=== PATIENT | male | born 1950 | race African-American/Black ===

== ENCOUNTER 2016-12-22 21:08 | Emergency (ER) | payer MEDICARE, MEDICAID ==
[2016-12-22 21:16] VITALS: BP 153/71
--- NOTE | 2016-12-22 22:20 | ER Document Report ---
ED General - General Chief Complaint: Low Blood Sugar Stated Complaint: BLOOD SUGAR PROBLEM Time Seen by Provider: 12/22/16 21:33 Notes: Patient is a 66-year-old male with history of borderline diabetes, currently taking metformin who presents with concerns of episode of hypoglycemia at home. Patient states his glucometer was reading into the low 20s at home but he did not have any symptoms. However states due to this reading he did come to the emergency department for assessment. He has not taken any insulin or oral hypoglycemics. He has not seen his [facility] doctor regarding today's concerns. He denies any additional symptoms. TRAVEL OUTSIDE OF THE [place] IN LAST 30 DAYS: No - Related Data Allergies/Adverse Reactions: cephalexin monohydrate [From [employer]] Allergy (Verified 12/22/16 21:13) Sulfa (Sulfonamide Antibiotics) Allergy (Verified 12/22/16 21:13) Past Medical History - General Information source: Patient - Social History Smoking Status: Never Smoker Frequency of alcohol use: None Drug Abuse: None Lives with: Spouse/Significant other Family History: Reviewed & Not Pertinent Patient has suicidal ideation: No Patient has homicidal ideation: No - Past Medical History Cardiac Medical History: Reports: Hx Coronary Artery Disease - STENT X1, Hx Hypercholesterolemia, Hx Hypertension Pulmonary Medical History: Denies: Hx Asthma, Hx Bronchitis, Hx COPD, Hx Pneumonia Neurological Medical History: Denies: Hx Cerebrovascular Accident, Hx Seizures Endocrine Medical History: Reports: Hx Diabetes Mellitus Type 1, Hx Diabetes Mellitus Type 2 Renal/ Medical History: Denies: Hx Peritoneal Dialysis Musculoskeltal Medical History: Reports Hx Arthritis Traumatic Medical History: Reports: Hx Fractures - 9-2-13 Left ulna fx Past Surgical History: Reports: Hx Cardiac Catheterization, Hx Cardiac Surgery - stent, Hx Coronary Stent - Immunizations Hx Diphtheria, Pertussis, Tetanus Vaccination: Yes Hx Pneumococcal Vaccination: 02/27/15 Review of Systems - Review of Systems Notes: Constitutional: Negative for fever. HENT: Negative for sore throat. Eyes: Negative for visual changes. Cardiovascular: Negative for chest pain. Respiratory: Negative for shortness of breath. Gastrointestinal: Negative for abdominal pain, vomiting or diarrhea. Genitourinary: Negative for dysuria. Musculoskeletal: Negative for back pain. Skin: Negative for rash. Neurological: Negative for headaches, weakness or numbness. 10 point ROS negative except as marked above and in HPI. Physical Exam - Vital signs Vitals: Temp Pulse Resp BP Pulse Ox 98.3 F 59 L 18 153/71 H 98 12/22/16 21:14 12/22/16 21:14 12/22/16 21:14 12/22/16 21:14 12/22/16 21:14 Interpretation: Bradycardic Notes: PHYSICAL EXAMINATION: GENERAL: Well-appearing, well-nourished and in no acute distress. HEAD: Atraumatic, normocephalic. EYES: sclera anicteric, conjunctiva are normal. ENT: Moist mucous membranes. NECK: Normal range of motion LUNGS: Normal work of breathing HEART: 2+ radial pulses bilaterally EXTREMITIES: no pitting or edema. No cyanosis. NEUROLOGICAL: No focal neurological deficits. Moves all extremities spontaneously and on command. PSYCH: Normal mood, normal affect. SKIN: Warm, Dry, normal turgor, no rashes or lesions noted. Course - Re-evaluation Re-evalutation: 12/22/16 22:19 Patient presents with concerns of a possible hypoglycemia although I suspect this is a spurious result as he does not take any oral hypoglycemic or insulin and denies any symptoms when he is getting readings of blood sugars in the 30s. This does not clinically make any sense and his blood sugar is normal here. He is otherwise asymptomatic. Screening exam unremarkable. Vitals within normal limits. Will discharge with follow-up recommendations and return precautions. He is in agreement with this plan. - Vital Signs Vital signs: Temp Pulse Resp BP Pulse Ox 98.3 F 59 L 18 153/71 H 98 12/22/16 21:14 12/22/16 21:14 12/22/16 21:14 12/22/16 21:14 12/22/16 21:14 - Laboratory Laboratory results interpreted by me: 12/22/16 21:42 POC Glucose 229 H Discharge - Discharge Clinical Impression: Diabetes mellitus type 2, controlled, without complications Qualifiers: Diabetes mellitus fci insulin use: without terminal computer operator use Qualified Code(s ): E11.9 - Type 2 diabetes mellitus without complications Condition: Good Disposition: HOME, SELF-CARE Additional Instructions: Please return to the emergency room immediately if you experience any concerning symptoms including high fevers, severe headache, chest pain, difficulty breathing, abdominal pain, slurred speech, numbness or weakness in your arms or legs, or any other symptom that concerns you. Referrals: ДМИТРИЙ ROJAS, DO [Primary Care Provider] - Follow up as needed
== END 2016-12-22 22:26 | disposition home or self-care (01) ==
LOC: ER 21:08
DX: E11.649 Type 2 diabetes mellitus with hypoglycemia without coma (principal)
CPT/HCPCS: 82962; 99283

== ENCOUNTER 2017-09-16 07:39 | Emergency (ER) | payer MEDICARE, MEDICAID ==
[2017-09-16] MEDS ORDERED: IPRATROPIUM/ALBUTEROL 0.5-2.5 MG/3 ML AMPUL NEB ONE (08:03)
--- NOTE | 2017-09-16 08:53 | ER Document Report ---
HPI - HPI Patient complains to provider of: Cough, congestion Onset: Other - 4 days Onset/Duration: Persistent Quality of pain: No pain Pain Level: Denies Context: Patient presents complaining of cough with congestion for the past 4 days. Patient reports being around a family member who has been sick with upper respiratory symptoms recently. Patient without any fevers. Associated Symptoms: Nonproductive cough, Rhinnorhea. denies: Chest pain, Fever , Nausea, Shortness of breath Exacerbated by: Denies Relieved by: Denies Similar symptoms previously: No Recently seen / treated by doctor: No - ROS ROS below otherwise negative: Yes Systems Reviewed and Negative: Yes All other systems reviewed and negative - CONSTITUTIONAL Constitutional: DENIES: Fever - EENT EENT: REPORTS: Nasal Drainage-Clear, Congestion - NEURO Neurology: DENIES: Headache - RESPIRATORY Respiratory: REPORTS: Coughing - GASTROINTESTINAL Gastrointestinal: DENIES: Abdominal Pain, Nausea, Patient vomiting - REPRODUCTIVE Reproductive: DENIES: : - MUSCULOSKELETAL Musculoskeletal: DENIES: Back Pain - DERM Skin Color: Normal Skin Problems: None Past Medical History - General Information source: Patient - Social History Smoking Status: Never Smoker Frequency of alcohol use: None Drug Abuse: None Occupation: None Lives with: Family Family History: Reviewed & Not Pertinent - Past Medical History Cardiac Medical History: Reports: Hx Coronary Artery Disease - STENT X1, Hx Hypercholesterolemia, Hx Hypertension Pulmonary Medical History: Denies: Hx Asthma, Hx Bronchitis, Hx COPD, Hx Pneumonia Neurological Medical History: Denies: Hx Cerebrovascular Accident, Hx Seizures Endocrine Medical History: Reports: Hx Diabetes Mellitus Type 1, Hx Diabetes Mellitus Type 2 Renal/ Medical History: Denies: Hx Peritoneal Dialysis Musculoskeltal Medical History: Reports Hx Arthritis Traumatic Medical History: Reports: Hx Fractures - 9-2-13 Left ulna fx Past Surgical History: Reports: Hx Cardiac Catheterization, Hx Cardiac Surgery - stent, Hx Coronary Stent - Immunizations Hx Diphtheria, Pertussis, Tetanus Vaccination: Yes Hx Pneumococcal Vaccination: 02/27/15 Vertical Provider Document - CONSTITUTIONAL Agree With Documented VS: Yes Exam Limitations: No Limitations General Appearance: WD/WN, No Apparent Distress - INFECTION CONTROL TRAVEL OUTSIDE OF THE [place] IN LAST 30 DAYS: No - HEENT HEENT: Atraumatic, Normal ENT Exam, Normocephalic - NECK Neck: Normal Inspection, Supple. negative: Lymphadenopathy-Left, Lymphadenopathy-Right - RESPIRATORY Respiratory: No Respiratory Distress, Chest Non-Tender, Wheezing - CARDIOVASCULAR Cardiovascular: Regular Rate, Regular Rhythm, No Murmur - GI/ABDOMEN Gastrointestinal: Abdomen Soft, Abdomen Non-Tender - BACK Back: Normal Inspection. negative: CVA Tenderness-Right, CVA Tenderness-Left - MUSCULOSKELETAL/EXTREMETIES Musculoskeletal/Extremeties: CARMINA, FROM - NEURO Level of Consciousness: Awake, Alert, Appropriate Motor/Sensory: No Motor Deficit - DERM Integumentary: Warm, Dry, No Rash Course - Re-evaluation Re-evalutation: 09/16/17 09:34 Patient with good air movement bilaterally, faint wheezing scattered bilaterally. Respirations unlabored. Chest x-ray without any findings concerning for pneumonia. Patient given good return precautions. - Vital Signs Vital signs: Temp Pulse Resp BP Pulse Ox 97.6 F 67 16 137/78 H 100 09/16/17 07:43 09/16/17 07:43 09/16/17 07:43 09/16/17 07:43 09/16/17 07:43 - Diagnostic Test Radiology reviewed: Reports reviewed Discharge - Discharge Clinical Impression: Wheezing Upper respiratory infection Qualifiers: URI type: unspecified URI Qualified Code(s): J06.9 - Acute upper respiratory infection, unspecified Condition: Stable Disposition: HOME, SELF-CARE Additional Instructions: Return immediately for any new or worsening symptoms Followup with your primary care provider, call tomorrow to make a followup appointment UPPER RESPIRATORY ILLNESS: You have a viral infection of the respiratory passages -- a "cold." This common infection causes nasal congestion, drainage, and often sore throat and cough. It is highly contagious. The disease usually lasts about 10 to 14 days. There is no "cure" for the viral infection -- it must run its course. If there is a complication, such as bacterial infection in the nose, sinuses, middle ear, or bronchial tubes, antibiotics may be required. The antibiotics won't affect the virus. Drink plenty of fluids. A humidifier may help. An expectorant medication or decongestant may make you more comfortable. Use acetaminophen or ibuprofen for fever or aches. See the doctor if fever persists over two days, if there is any significant worsening of your symptoms, or if you simply fail to improve as expected. BRONCHOSPASM: You have tightness in the bronchial tubes, called bronchospasm. This often occurs with bronchial infections. Allergies, inhaled chemicals, and polluted or cold air can also provoke bronchospasm. It's more likely in patients with asthma in the family. Emergency treatment of bronchospasm may include adrenaline shots or bronchodilator aerosol. You may feel lightheaded and have a rapid pulse for an hour or two. Rest and get plenty of fluids. At home, we'll treat you with a bronchodilator inhaler. Antibiotics and corticosteroids may be required for some patients. Until you recover, avoid chemical fumes, dusts, pollens, and exercising in very cold or dry air. If you smoke, stop now!! If you develop a fever, increased wheezing, chest pain, or severe shortness of breath, you should contact the doctor immediately. INHALED BRONCHODILATORS: You have received a treatment of and/or prescription for an inhaled bronchodilator -- a medication which stimulates the airways in the lung to dilate. This improves the flow of air in asthma, bronchitis, and emphysema. These medicines have some similarity to adrenaline, and can cause similar side effects: shakiness, racing heart, and a sense of nervousness. These side effects decrease with time. Contact your doctor if these side effects are severe. Do not over-use the medicine. Too-frequent use of the inhaler may make it ineffective. Call your doctor if the inhaler is not controlling your symptoms at the prescribed doses. STEROID MEDICATION: You have been given an injection of or oral medicine of the cortisone/ steroid class. This medication is used to control inflammation or allergy. Rey t is usually only given for a short period of time, until the acute process subsides. There are usually no side effects from short-term use of cortisone-like medications. Some persons feel an increased sense of well-being and are not sleepy at bedtime. Long-term use of cortisone medications is best avoided, unless required for a severe condition. If your condition does not remit, or relapses after the course of corticosteroid medication, you should consult your physician. USE OF ACETAMINOPHEN (Tylenol): Acetaminophen may be taken for pain relief or fever control. It's much safer than aspirin, offering a wider range of "safe" dosages. It is safe during . Some brand names are Tylenol, Panadol, Datril, Anacin 3, Tempra, and Liquiprin. Acetaminophen can be repeated every four hours. The following are maximum recommended dosages: >89 pounds or adults 650 mg to 900 mg Acetaminophen can be repeated every four hours. Maximum dose not to exceed 4000 mg a day. FOLLOW-UP CARE: If you have been referred to a physician for follow-up care, call the physician s office for an appointment as you were instructed or within the next two days. If you experience worsening or a significant change in your symptoms, notify the physician immediately or return to the Emergency Department at any time for re-evaluation. Prescriptions: Albuterol Sulfate [Ventolin Hfa] 2 puff IH Q4HP PRN #17 gm PRN Reason: Benzonatate [Tessalon Perle 100 mg Capsule] 100 mg PO Q8HP PRN #20 cap PRN Reason: Prednisone [Deltasone 20 mg Tablet] 2 tab PO DAILY 4 Days tablet Referrals: ДМИТРИЙ ROJAS DO [Primary Care Provider] - Follow up tomorrow
--- NOTE | 2017-09-16 08:56 | RADIOLOGY REPORT (SQ) ---
EXAM DESCRIPTION: CHEST 2 VIEWS COMPLETED DATE/TIME: 09/16/2017 8:25 am REASON FOR STUDY: cough COMPARISON: Chest films 04/26/2016, 01/25/2014 EXAM PARAMETERS: NUMBER OF VIEWS: two views TECHNIQUE: Digital Frontal and Lateral radiographic views of the chest acquired. RADIATION DOSE: NA LIMITATIONS: none FINDINGS: LUNGS AND PLEURA: No opacities, masses or pneumothorax. No pleural effusion. MEDIASTINUM AND HILAR STRUCTURES: No masses or contour abnormalities. HEART AND VASCULAR STRUCTURES: Heart normal size. No evidence for failure. BONES: No acute findings. HARDWARE: None in the chest. OTHER: No other significant finding. IMPRESSION: NO ACUTE RADIOGRAPHIC FINDING IN THE CHEST. TECHNICAL DOCUMENTATION: JOB ID: [id number] [employer]- All Rights Reserved Reading location - IP/workstation name: [email or web address]
[2017-09-16] MEDS ORDERED: PREDNISONE 20 MG TABLET PO ONE (09:34)
[2017-09-16 10:15] VITALS: BP 147/77
== END 2017-09-16 10:07 | disposition home or self-care (01) ==
LOC: ER 07:39
DX: J06.9 Acute upper respiratory infection, unspecified (principal); R05 Cough; R06.2 Wheezing; J34.89 Other specified disorders of nose and nasal sinuses; I25.10 Atherosclerotic heart disease of native coronary artery without angina pectoris; I10 Essential (primary) hypertension; E11.9 Type 2 diabetes mellitus without complications; Z95.5 Presence of coronary angioplasty implant and graft
CPT/HCPCS: 94640; 99283; 71046; A9270 ×2; J7512; J7620

== ENCOUNTER 2018-04-29 08:38 | Emergency (ER) | payer MEDICARE, MEDICAID ==
--- NOTE | 2018-04-29 09:15 | ER Document Report ---
Addendum entered and electronically signed by DAVY GONZALEZ NP 04/29/18 09:58: Course - Re-evaluation Re-evalutation: 04/29/18 09:57 Chest x-ray was negative and discussed with patient. Patient was discharged home with instructions for Coricidin HB Flonase and soda solution gargles for his postnasal drip. After performing a Medical Screening Examination, I estimate there is LOW risk for ACUTE CORONARY SYNDROME, RESPIRATORY FAILURE, SEPSIS OR MENINGITIS, thus I consider the discharge disposition reasonable. I have reevaluated this patient multiple times and no significant life threatening changes are noted. The patient and I have discussed the diagnosis and risks, and we agree with discharging home with close follow-up. We also discussed returning to the Emergency Department immediately if new or worsening symptoms occur. We have discussed the symptoms which are most concerning (e.g., changing or worsening pain, trouble swallowing or breathing, neck stiffness, fever) that necessitate immediate return. - Vital Signs Vital signs: Temp Pulse Resp BP Pulse Ox 98.5 F 63 16 152/77 H 99 04/29/18 08:41 04/29/18 08:41 04/29/18 08:41 04/29/18 08:41 04/29/18 08:41 - Diagnostic Test Radiology reviewed: Image reviewed, Reports reviewed Original Note: ED Respiratory Problem - General Chief Complaint: Nasal Congestion Stated Complaint: COUGH, RUNNY NOSE Time Seen by Provider: 04/29/18 09:00 Mode of Arrival: Ambulatory Information source: Patient Notes: 68-year-old male presented to ED for cough cold congestion times 1/2 weeks. He states he has not had any fevers he has a had a productive cough with white sputum congestion postnasal drip and has been taken [id number] medications with no relief. He is alert oriented respirations regular and unlabored speaking in full sentences denies any chest pain. States he does have some body aches. He is able to walk with a even steady gait. He states he had 2 flu shots this year because he was told he had to because of his age. He states he had his pneumonia shot in 2014. TRAVEL OUTSIDE OF THE [place] IN LAST 30 DAYS: No - HPI Patient complains to provider of: Cough Onset: Other - 1-1/2 weeks Duration: Intermittent episodes Initiating Event: URI Quality of pain: Achy Severity: None Sputum amount: Small Sputum color: White Associated symptoms: Congestion, Cough, PND, Runny nose, Sinus pain/pressure Similar symptoms previously: Yes Recently seen / treated by doctor: No - Related Data Allergies/Adverse Reactions: cephalexin monohydrate [From Keflex] Allergy (Verified 12/22/16 21:13) Sulfa (Sulfonamide Antibiotics) Allergy (Verified 12/22/16 21:13) Past Medical History - General Information source: Patient - Social History Smoking Status: Never Smoker Drug Abuse: None Lives with: Alone Family History: Reviewed & Not Pertinent Patient has suicidal ideation: No Patient has homicidal ideation: No - Past Medical History Cardiac Medical History: Reports: Hx Coronary Artery Disease - STENT X1, Hx Hypercholesterolemia, Hx Hypertension Pulmonary Medical History: Reports: None EENT Medical History: Reports: None Neurological Medical History: Reports: None Endocrine Medical History: Reports: Hx Diabetes Mellitus Type 2 Renal/ Medical History: Reports: None Malignancy Medical History: Reports None GI Medical History: Reports: None Musculoskeletal Medical History: Reports Hx Arthritis Skin Medical History: Reports None Psychiatric Medical History: Reports: None Traumatic Medical History: Reports: Hx Fractures - 12-29-12 Left ulna fx Infectious Medical History: Reports: None Past Surgical History: Reports: Hx Cardiac Catheterization, Hx Cardiac Surgery, Hx Coronary Stent - Immunizations Immunizations up to date: Yes Hx Diphtheria, Pertussis, Tetanus Vaccination: Yes History of Influenza Vaccine for 01/2017 - 06/2017 Season: Yes Hx Pneumococcal Vaccination: 02/27/15 Review of Systems - Review of Systems Constitutional: Recent illness EENT: Nose congestion, Nose discharge, Sinus pressure, Sinus discharge Cardiovascular: No symptoms reported Respiratory: Sputum Gastrointestinal: No symptoms reported Genitourinary: No symptoms reported Male Genitourinary: No symptoms reported Musculoskeletal: No symptoms reported Skin: No symptoms reported Hematologic/Lymphatic: No symptoms reported Neurological/Psychological: No symptoms reported -: Yes All other systems reviewed and negative Physical Exam - Vital signs Vitals: Temp Pulse Resp BP Pulse Ox 98.5 F 63 16 152/77 H 99 04/29/18 08:41 04/29/18 08:41 04/29/18 08:41 04/29/18 08:41 04/29/18 08:41 Interpretation: Normal - General General appearance: Appears well, Alert - HEENT Head: Normocephalic, Atraumatic Eyes: Normal Pupils: PERRL Ears: Normal External canal: Normal Tympanic membrane: Normal Sinus: Normal Nasal: Swelling, Clear rhinorrhea Mouth/Lips: Normal Mucous membranes: Normal Pharynx: Post nasal drainage Neck: Normal - Respiratory Respiratory status: No respiratory distress Chest status: Nontender Breath sounds: Normal, Productive cough - white Chest palpation: Normal - Cardiovascular Rhythm: Regular Heart sounds: Normal auscultation Murmur: No - Abdominal Inspection: Normal Distension: No distension Bowel sounds: Normal Tenderness: Nontender Organomegaly: No organomegaly - Back Back: Normal, Nontender - Extremities General upper extremity: Normal inspection, Nontender, Normal color, Normal ROM, Normal temperature General lower extremity: Normal inspection, Nontender, Normal color, Normal ROM, Normal temperature, Normal weight bearing. No: Akash's sign - Neurological Neuro grossly intact: Yes Cognition: Normal Orientation: AAOx4 Roly Coma Scale Eye Opening: Spontaneous Roly Coma Scale Verbal: Oriented Roly Coma Scale Motor: Obeys Commands Roly Coma Scale Total: 15 Speech: Normal Motor strength normal: LUE, RUE, LLE, RLE Sensory: Normal - Psychological Associated symptoms: Normal affect, Normal mood - Skin Skin Temperature: Warm Skin Moisture: Dry Skin Color: Normal Course - Vital Signs Vital signs: Temp Pulse Resp BP Pulse Ox 98.5 F 63 16 152/77 H 99 04/29/18 08:41 04/29/18 08:41 04/29/18 08:41 04/29/18 08:41 04/29/18 08:41 Discharge - Discharge Clinical Impression: URI (upper respiratory infection) Qualifiers: URI type: unspecified URI Qualified Code(s): J06.9 - Acute upper respiratory infection, unspecified Condition: Stable Disposition: HOME, SELF-CARE Additional Instructions: UPPER RESPIRATORY ILLNESS: You have a viral infection of the respiratory passages -- a "cold." This common infection causes nasal congestion, drainage, and often sore throat and cough. It is highly contagious. The disease usually lasts about 10 to 14 days. There is no "cure" for the viral infection -- it must run its course. If there is a complication, such as bacterial infection in the nose, sinuses, middle ear, or bronchial tubes, antibiotics may be required. The antibiotics won't affect the virus. Drink plenty of fluids. A humidifier may help. An expectorant medication or decongestant may make you more comfortable. Use acetaminophen or ibuprofen for fever or aches. See the doctor if fever persists over two days, if there is any significant worsening of your symptoms, or if you simply fail to improve as expected. COUGH-SUPPRESSANT & EXPECTORANT MEDICATION: You are to use a cough medication as needed for relief of symptoms. This medicine is a combination of an expectorant (to make the mucous thinner and more easily "coughed up") and a cough suppressant (to reduce the frequency of coughing). The cough-suppressant medicine is related to narcotics. You may experience mild nausea and sleepiness. Some patients who are very sensitive to narcotics may have stomach pain from this medicine. Taking the medicine with food reduces these side effects. Do not drive or work with machinery until you know how this medicine affects you. The expectorant should have no side effects. Iodine-containing expectorants (such as organidin) should not be taken by persons with active thyroid disease unless approved by your doctor. Call the doctor if you develop shortness of breath, hives, rash, itching, lightheadedness, or severe nausea and vomiting. USE OF ACETAMINOPHEN (Tylenol): Acetaminophen may be taken for pain relief or fever control. It's much safer than aspirin, offering a wider range of "safe" dosages. It is safe during . Some brand names are Tylenol, Panadol, Datril, Anacin 3, Tempra, and Liquiprin. Acetaminophen can be repeated every four hours. The following are maximum recommended dosages: >89 pounds or adults 650 mg to 900 mg Acetaminophen can be repeated every four hours. Maximum dose not to exceed 4000 mg a day. SMOKING: If you smoke, you should stop smoking. The tar and chemicals in cigarette smoke are harmful. Smoking has been shown to cause: emphysema chronic bronchitis lung cancer mouth and throat cancer stomach and pancreas cancer premature aging defects In addition, smoking increases ear and lung infections in children of smokers. Please try Coricidin HB for your cough, congestions. You can also use Flonase nasal spray or nasal drainage, Chloraseptic spray for your throat and salt and soda solution gargles to remove the postnasal drip from the back your throat. Salt and soda solution 1 quart of water 1 tablespoon of salt 1 teaspoon of baking soda Mixed 3 ingredients together and boil for 1 minute Placed in a covered quart jar Use 1/2 ounce of cold solution to gargle 3 times a day If you have been referred to a physician for follow-up care, call the physicians office for an appointment as you were instructed or within the next two days. If you experience worsening or a significant change in your symptoms, notify the physician immediately or return to the Emergency Department at any time for re-evaluation. Forms: Elevated Blood Pressure, Smoking Cessation Education, Return to Work Referrals: ДМИТРИЙ ROJAS DO [Primary Care Provider] - Follow up in 3-5 days
--- NOTE | 2018-04-29 09:38 | RADIOLOGY REPORT (SQ) ---
EXAM DESCRIPTION: CHEST 2 VIEWS COMPLETED DATE/TIME: 04/29/2018 9:09 am REASON FOR STUDY: cough congestion COMPARISON: 09/16/2017 EXAM PARAMETERS: NUMBER OF VIEWS: two views TECHNIQUE: Digital Frontal and Lateral radiographic views of the chest acquired. RADIATION DOSE: NA LIMITATIONS: none FINDINGS: LUNGS AND PLEURA: No opacities, masses or pneumothorax. No pleural effusion. MEDIASTINUM AND HILAR STRUCTURES: No masses or contour abnormalities. HEART AND VASCULAR STRUCTURES: Heart normal size. No evidence for failure. BONES: Disc degenerative disease of the thoracic spine. HARDWARE: None in the chest. OTHER: No other significant finding. IMPRESSION: NO ACUTE RADIOGRAPHIC FINDING IN THE CHEST. TECHNICAL DOCUMENTATION: JOB ID: [id number] [employer]- All Rights Reserved Reading location - IP/workstation name: [email or web address]
[2018-04-29 10:08] VITALS: BP 132/74
== END 2018-04-29 09:59 | disposition home or self-care (01) ==
LOC: ER 08:38
DX: J06.9 Acute upper respiratory infection, unspecified (principal); R05 Cough; R09.82 Postnasal drip; R09.81 Nasal congestion; J34.89 Other specified disorders of nose and nasal sinuses; I10 Essential (primary) hypertension; I25.10 Atherosclerotic heart disease of native coronary artery without angina pectoris; E11.9 Type 2 diabetes mellitus without complications; Z88.1 Allergy status to other antibiotic agents; Z88.2 Allergy status to sulfonamides; Z95.5 Presence of coronary angioplasty implant and graft
CPT/HCPCS: 71046; 99283

== ENCOUNTER 2018-08-02 12:24 | Emergency (ER) | payer MEDICARE, MEDICAID ==
--- NOTE | 2018-08-02 13:56 | RADIOLOGY REPORT (SQ) ---
EXAM DESCRIPTION: CHEST 2 VIEWS COMPLETED DATE/TIME: 08/02/2018 1:43 pm REASON FOR STUDY: sob COMPARISON: 04/29/2018 and earlier EXAM PARAMETERS: NUMBER OF VIEWS: two views TECHNIQUE: Digital Frontal and Lateral radiographic views of the chest acquired. RADIATION DOSE: NA LIMITATIONS: none FINDINGS: LUNGS AND PLEURA: No opacities, masses or pneumothorax. No pleural effusion. MEDIASTINUM AND HILAR STRUCTURES: No masses or contour abnormalities. HEART AND VASCULAR STRUCTURES: Heart normal size. No evidence for failure. BONES: No acute findings. HARDWARE: None in the chest. OTHER: No other significant finding. IMPRESSION: NO ACUTE RADIOGRAPHIC FINDING IN THE CHEST. TECHNICAL DOCUMENTATION: JOB ID: [id number] [employer]- All Rights Reserved Reading location - IP/workstation name: [email or web address]
--- NOTE | 2018-08-02 14:13 | ER Document Report ---
HPI - HPI Patient complains to provider of: cough Time Seen by Provider: 08/02/18 13:15 Pain Level: 3 Context: Patient is a 68-year-old male presents to the emergency department for generalized cough and congestion for the last 4 days. Patient's denying any fever. States he is taking [id number] Coricidin HPV. States he tried to get into his primary care provider but was unable. Patient is denying any chest pain or shortness of breath. States he wants to make sure he does not have pneumonia. Past medical history: Diabetes, hypertension, hyperlipidemia Medications: Amlodipine, gabapentin, atenolol, losartan, metformin, simvastatin Allergies: Sulfa, Keflex - REPRODUCTIVE Reproductive: DENIES: : Past Medical History - General Information source: Patient - Social History Smoking Status: Unknown if Ever Smoked Family History: Reviewed & Not Pertinent - Past Medical History Cardiac Medical History: Reports: Hx Coronary Artery Disease - STENT X1, Hx Hypercholesterolemia, Hx Hypertension Endocrine Medical History: Reports: Hx Diabetes Mellitus Type 1, Hx Diabetes Mellitus Type 2 Renal/ Medical History: Denies: Hx Peritoneal Dialysis Musculoskeletal Medical History: Reports Hx Arthritis Traumatic Medical History: Reports: Hx Fractures - 9- Left ulna fx Past Surgical History: Reports: Hx Cardiac Catheterization, Hx Cardiac Surgery, Hx Coronary Stent - Immunizations Immunizations up to date: Yes Hx Diphtheria, Pertussis, Tetanus Vaccination: Yes Hx Pneumococcal Vaccination: 02/27/15 Vertical Provider Document - CONSTITUTIONAL Agree With Documented VS: Yes Notes: GENERAL: Alert, interacts well. No acute distress. HEAD: Normocephalic, atraumatic. No frontal or maxillary sinus tenderness noted EYES: Pupils equal, round, and reactive to light. Extraocular movements intact. ENT: Oral mucosa moist, tongue midline. Nares patent, swollen turbinates noted bilaterally, TM's intact, Nonerythematous, nonbulging bilaterally. Pharynx within normal limits no palatal petechiae noted NECK: Full range of motion. Supple. Trachea midline. No lymphadenopathy appreciated LUNGS: Clear to auscultation bilaterally, no wheezes, rales, or rhonchi. No respiratory distress. HEART: Regular rate and rhythm. No murmur ABDOMEN: Soft, non-tender. Non-distended. Bowel sounds present in all 4 quadrants. EXTREMITIES: Moves all 4 extremities spontaneously. No edema, normal radial and dorsalis pedis pulses bilaterally. No cyanosis. BACK: no cervical, thoracic, lumbar midline tenderness. No saddle anesthesia, normal distal neurovascular exam. NEUROLOGICAL: Alert and oriented x3. Normal speech. cranial nerves II through XII grossly intact. PSYCH: Normal affect, normal mood. SKIN: Warm, dry, normal turgor. No rashes or lesions noted. - INFECTION CONTROL TRAVEL OUTSIDE OF THE [place] IN LAST 30 DAYS: No Course - Re-evaluation Re-evalutation: 08/02/18 14:11 patient's chest x-ray shows no signs of pneumonia, pneumothorax, rib fracture. Due to patient's history of hypertension Coricidin HPB as well as the only medication safe and hypertension. Discussed Use of nasal sprays, staying well- hydrated and following up with primary care provider. Patient stable for discharge. - Vital Signs Vital signs: Temp Pulse Resp BP Pulse Ox 98.7 F 69 16 142/76 H 100 08/02/18 12:31 08/02/18 12:31 08/02/18 12:31 08/02/18 12:31 08/02/18 12:31 Discharge - Discharge Clinical Impression: Upper respiratory infection Qualifiers: URI type: unspecified viral URI Qualified Code(s): J06.9 - Acute upper respiratory infection, unspecified Condition: Stable Disposition: HOME, SELF-CARE Instructions: Viral Syndrome ([facility]), Upper Respiratory Illness ([facility]) Additional Instructions: As we discussed you have been seen and treated in the emergency department for an upper respiratory infection. Please make sure you take medications as prescribed. Please also make sure you continue with Coricidin HBP for continued care. Please make sure you stay well-hydrated and follow-up with your primary care provider in the next 24-48 hours. Return to the emergency room should you have any other concerning symptoms Prescriptions: Mometasone Furoate [Nasonex] 1 spray NS Q12 #1 spray.pump Referrals: ДМИТРИЙ ROJAS DO [Primary Care Provider] - Follow up as needed
[2018-08-02 14:23] VITALS: BP 134/68
== END 2018-08-02 14:24 | disposition home or self-care (01) ==
LOC: ER 12:24
DX: J06.9 Acute upper respiratory infection, unspecified (principal); R68.89 Other general symptoms and signs; I25.10 Atherosclerotic heart disease of native coronary artery without angina pectoris; E78.00 Pure hypercholesterolemia, unspecified; I10 Essential (primary) hypertension; E11.9 Type 2 diabetes mellitus without complications
CPT/HCPCS: 71046; 99283